=== PATIENT | female | born 1975 | race Hispanic/Latino ===

== ENCOUNTER 2022-04-29 14:08 | Outpatient (CLI) | payer BC | END 2022-04-29 14:09 | disposition home or self-care (01) | LOC: CSHMAMMO 14:08 | PROVIDERS: ATTEND Family Medicine | DX: Z12.31 Encounter for screening mammogram for malignant neoplasm of breast (principal); N64.89 Other specified disorders of breast | CPT/HCPCS: 77063; 77067 ==

== ENCOUNTER 2023-05-25 08:44 | Outpatient (CLI) | payer BC ==
[2023-05-25] MEDS ORDERED: Iopamidol 300 61% 100 ML VIAL FS ONE (09:59)
== END 2023-05-25 08:45 | disposition home or self-care (01) ==
LOC: CSHCT 08:44
PROVIDERS: ATTEND Physician Assistant
DX: R19.00 Intra-abdominal and pelvic swelling, mass and lump, unspecified site (principal)
CPT/HCPCS: 74177

== ENCOUNTER 2023-06-13 15:09 | Outpatient (CLI) | payer BC | END 2023-06-13 15:10 | disposition home or self-care (01) | LOC: CSHMAMMO 15:09 | PROVIDERS: ATTEND Physician Assistant | DX: Z12.31 Encounter for screening mammogram for malignant neoplasm of breast (principal) | CPT/HCPCS: 77063; 77067 ==

== ENCOUNTER 2023-07-14 10:34 | Outpatient (CLI) | payer BC | END 2023-07-14 10:35 | disposition home or self-care (01) | LOC: CSHULT 10:34 | PROVIDERS: ATTEND Physician Assistant | DX: R22.2 Localized swelling, mass and lump, trunk (principal) | CPT/HCPCS: 76705 ==

== ENCOUNTER 2024-03-19 11:07 | Outpatient (CLI) | payer BC | END 2024-03-19 11:08 | disposition home or self-care (01) | LOC: CSHLAB 11:07 | PROVIDERS: ATTEND Surgery | DX: Z01.818 Encounter for other preprocedural examination (principal); K40.20 Bilateral inguinal hernia, without obstruction or gangrene, not specified as recurrent | CPT/HCPCS: 93005; 93010 ==

== ENCOUNTER 2024-03-22 06:06 | Day surgery (SDC) | payer BC ==
[2024-03-19 11:37] VITALS: BMI 25.9
[2024-03-22] MEDS ORDERED: Bupivacaine HCl 0.5%/Epinephrine 1:200,000/PF 30 ml Vial ONE (06:51)
[2024-03-22] MEDS ORDERED: CEFAZOLIN 2 GM VIAL ONE (06:51)
[2024-03-22] MEDS ORDERED: PROPOFOL 20 ML ONE (07:08)
[2024-03-22] MEDS ORDERED: fentaNYL 50 mcg/mL 1 mL Vial ONE (07:09)
[2024-03-22] MEDS ORDERED: Rocuronium Bromide 10 MG/ML (10ML VIAL) ONE (07:09)
[2024-03-22] MEDS ORDERED: Dexmedetomidine 200 MCG/2 ML VIAL ONE (07:09)
[2024-03-22] MEDS ORDERED: Lidocaine 1% PF 5 ML VIAL ONE (07:09)
[2024-03-22] MEDS ORDERED: Dexamethasone 20 MG/5 ML VIAL ONE (07:38)
[2024-03-22] MEDS ORDERED: Glycopyrrolate 0.2 MG/ML 5 ML SYRINGE ONE (07:44)
[2024-03-22] MEDS ORDERED: ePHEDrine Sulfate 50 MG/10 ML VIAL ONE (07:45)
[2024-03-22] MEDS ORDERED: Sevoflurane 250 ML INH ANEST BOTTLE ONE (08:07)
[2024-03-22] MEDS ORDERED: SUGAMMADEX SODIUM 200 MG/2 ML VIAL ONE (08:31)
[2024-03-22] MEDS ORDERED: Ketorolac Tromethamine 30 MG (1 mL) VIAL ONE (08:31)
[2024-03-22] MEDS ORDERED: Ondansetron PF 4 MG/2 ML Vial ONE (08:31)
== END 2024-03-22 10:25 | disposition home or self-care (01) ==
LOC: CSHSDC 06:06
PROVIDERS: ATTEND Surgery
PROC: 0YUA4JZ Supplement Bilateral Inguinal Region with Synthetic Substitute, Percutaneous Endoscopic Approach (ICD-10-PCS; principal; 2024-03-22)
DX: K40.20 Bilateral inguinal hernia, without obstruction or gangrene, not specified as recurrent (principal); D50.9 Iron deficiency anemia, unspecified; G47.00 Insomnia, unspecified; K40.90 Unilateral inguinal hernia, without obstruction or gangrene, not specified as recurrent; Z79.899 Other long term (current) drug therapy
CPT/HCPCS: C1781; J1100; J1885; J2405; J2704; J3010

== ENCOUNTER 2024-08-15 12:55 | Outpatient (CLI) | payer BC | END 2024-08-15 12:56 | disposition home or self-care (01) | LOC: CSHMAMMO 12:55 | PROVIDERS: ATTEND Physician Assistant | DX: Z12.31 Encounter for screening mammogram for malignant neoplasm of breast (principal) | CPT/HCPCS: 77063; 77067 ==